=== PATIENT | male | born 1960 | race Caucasian/White ===

== ENCOUNTER 2017-02-08 20:58 | Emergency (ER) | payer OTHER ==
[~2017-02-08] VITALS: Ht 180.3 cm; Wt 90.7 kg
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
--- NOTE | 2017-02-08 22:28 | NUR ---
PT TO RADIOLOGY FOR HEAD AND FACIAL CT SCAN VIA WHEELCHAIR.
--- NOTE | 2017-02-08 23:35 | NUR ---
Patient discharged to home in stable condition. Written and verbal after care instructions given. Patient verbalizes understanding of instruction.
[2017-02-08 23:36] VITALS: BP 142/96
== END 2017-02-08 23:36 | disposition home or self-care (01) ==
LOC: ER 21:00
DX: S02.32XA Fracture of orbital floor, left side, initial encounter for closed fracture (principal); I10 Essential (primary) hypertension; I73.9 Peripheral vascular disease, unspecified; F41.9 Anxiety disorder, unspecified; F32.9 Major depressive disorder, single episode, unspecified; F17.200 Nicotine dependence, unspecified, uncomplicated; Y04.0XXA Assault by unarmed brawl or fight, initial encounter; Y92.89 Other specified places as the place of occurrence of the external cause; Y93.89 Activity, other specified; Y99.8 Other external cause status
CPT/HCPCS: 70450-TC; 70486-TC; A4606; Z7610

== ENCOUNTER 2018-03-25 00:12 | Emergency (ER) | payer OTHER ==
[~2018-03-25] VITALS: Ht 180.3 cm; Wt 99.8 kg
[2018-03-25] MEDS ORDERED: IV D5/ 0.9% NACL 1,000 ML IV ONE (01:24)
[2018-03-25] MEDS ORDERED: LORAZEPAM INJ 2 MG/ML VIAL IV ONE (01:30)
[2018-03-25] MEDS ORDERED: ASPIRIN 81 MG TAB.CHEW PO ONE (01:30)
[2018-03-25] MEDS ORDERED: ASPIRIN 81 MG TAB.CHEW ONE (01:33)
[2018-03-25] MEDS ORDERED: LORAZEPAM INJ 2 MG/ML VIAL ONE (01:34)
--- NOTE | 2018-03-25 01:42 | NUR ---
BLOOD SENT TO LAB
[2018-03-25 01:49] LABS: BASOPHILS % (AUTO) 0.1 % (0.0-2.0); EOSINOPHILS % (AUTO) 8.8 % (0.0-6.0); HEMATOCRIT 46 % (39-51); HEMOGLOBIN 15.6 g/dL (13.5-17.5); LYMPHOCYTES % (AUTO) 37.4 % (20.0-44.0); MEAN CORPUSCULAR HGB CONC 34 g/dl (31.0-36.0); MEAN CORPUSCULAR VOLUME 98 fL (80-96); MONOCYTES # (AUTO) 0.5 /CMM (0.1-1.30); MONOCYTES % (AUTO) 10.5 % (2.0-12.0); NEUTROPHILS # (AUTO) 2.3 /CMM (1.8-8.9); NEUTROPHILS % (AUTO) 43.2 % (43.0-81.0); PLATELET COUNT (AUTO) 186 /CMM (150-450); RED BLOOD CELL COUNT(AUTO) 4.66 MIL/uL (4.5-6.0); WHITE BLOOD COUNT (AUTO) 5.2 K/uL (4.3-11.0)
--- NOTE | 2018-03-25 01:50 | NUR ---
Presented with generalyzed body ache,not feeling well,admits to drinking .Awake,alert,not in any distress,denies any chest pain.
[2018-03-25 02:05] LABS: D-DIMER 0.57 mg/L(FEU (0.17-0.50)
[2018-03-25 02:06] LABS: CALCIUM, SERUM 8.9 mg/dL (8.5-10.1); CARBON DIOXIDE 32 mmol/L (21-32); CHLORIDE 102 mmol/L (98-107); CREATININE 1.1 mg/dL (0.6-1.3); GLUCOSE 110 mg/dL (74-106); POTASSIUM 3.2 mmol/L (3.5-5.1); SODIUM SERUM 144 mmol/L (136-145); UREA NITROGEN, BLOOD 11 mg/dL (7-18)
[2018-03-25 02:14] LABS: ALANINE AMINOTRANSFERASE 116 U/L (12-78); ALBUMIN 3.9 g/dL (3.4-5.0); ALKALINE PHOSPHATASE 57 U/L (46-116); ASPARTATE AMINOTRANSFERASE 104 U/L (15-37); B-TYPE NATRIURETIC PEPTIDE 17 PG/ML (0-125); BILIRUBIN,DIRECT 0.1 mg/dL (0.0-0.2); BILIRUBIN,TOTAL 0.3 mg/dL (0.2-1.0); TOTAL PROTEIN, SERUM 8.1 g/dL (6.4-8.2)
[2018-03-25] MEDS ORDERED: POTASSIUM CHLORIDE 20 MEQ TAB.PRT.SR PO ONE ×2 (03:00→03:09)
--- NOTE | 2018-03-25 03:38 | NUR ---
PATIENT SIGNED DISCHARGE PAPERS. WAITING FOR IV FLUID BAG TO FINISH INFUSING. ONCE IVF IS DONE Pt IS CLEARED TO LEAVE.
--- NOTE | 2018-03-25 03:38 | NUR ---
ALL ORDERED MEDS GIVEN
[2018-03-25 04:25] VITALS: BP 150/98
--- NOTE | 2018-03-25 04:25 | NUR ---
Patient discharged to home in stable condition. Written and verbal after care instructions given. Patient verbalizes understanding of instruction. IV access removed and secured with gauze and tape. No signs of bleeding noted. All ordered meds given. Pt left facility on foot, with slow steady gait. No s/s of acute distress or sob noted.
== END 2018-03-25 04:25 | disposition home or self-care (01) ==
LOC: ER 00:15
DX: F10.229 Alcohol dependence with intoxication, unspecified (principal); E87.6 Hypokalemia; R53.1 Weakness; E86.0 Dehydration; R56.9 Unspecified convulsions; I10 Essential (primary) hypertension; F31.9 Bipolar disorder, unspecified; F17.210 Nicotine dependence, cigarettes, uncomplicated; Y90.8 Blood alcohol level of 240 mg/100 ml or more; Z60.2 Problems related to living alone; Z71.6 Tobacco abuse counseling; Z59.0 Homelessness
CPT/HCPCS: 36415; 71045-TC; 80048-TC; 80076-TC; 83880; 84484-TC; 85025-TC; 85378-TC; 85730-TC; A4606; G0480; J2060; J7042; Z7610

== ENCOUNTER 2019-02-12 17:12 | Emergency (ER) | payer MEDICAID, OTHER ==
[~2019-02-12] VITALS: Ht 180.3 cm; Wt 89.8 kg
[2019-02-12 17:18] VITALS: BP 124/64
--- NOTE | 2019-02-12 17:25 | NUR ---
DR SEPULVEDA AT BEDSIDE FOR EVAL.
--- NOTE | 2019-02-12 17:45 | NUR ---
RADIOLOGY AT BEDSIDE FOR R SHOULDER XRAY.
--- NOTE | 2019-02-12 18:39 | NUR ---
PT PROVIDED W/ SHOULDER SLING, DISCHARGE IN STABLE CONDITION.
== END 2019-02-12 18:40 | disposition home or self-care (01) ==
LOC: ER 17:23
DX: M25.511 Pain in right shoulder (principal); M54.2 Cervicalgia; R56.9 Unspecified convulsions; I10 Essential (primary) hypertension; F41.9 Anxiety disorder, unspecified; F31.9 Bipolar disorder, unspecified; F10.10 Alcohol abuse, uncomplicated; F17.200 Nicotine dependence, unspecified, uncomplicated; Y90.9 Presence of alcohol in blood, level not specified; Z59.0 Homelessness
CPT/HCPCS: 72040-TC; 73030-TC

== ENCOUNTER 2019-02-16 12:17 | Inpatient (IN) | payer MEDICAID ==
[~2019-02-16] VITALS: Ht 175.3 cm; Wt 86.2 kg
--- NOTE | 2019-02-16 12:40 | NUR ---
PATIENT CAME TO ER WITH C/O WEAKNESS 5x DAYS. NAD NOTED. NO SOB. PATIENT CONNECTED TO MONITOR. WILL CONTINUE TO MONITOR FOR PATIENT SAFETY.
--- NOTE | 2019-02-16 12:56 | NUR ---
BLOOD SUGAR 105.
[2019-02-16] MEDS ORDERED: IV NS 0.9% 1,000 ML BAG IV ONE (13:00)
[2019-02-16 13:51] LABS: BASOPHILS # (AUTO) 0.1 /CMM (0.0-0.2); BASOPHILS % (AUTO) 1.1 % (0.0-2.0); EOSINOPHILS % (AUTO) 4.8 % (0.0-6.0); HEMATOCRIT 44 % (39-51); LYMPHOCYTES # (AUTO) 1.2 /CMM (0.8-4.8); LYMPHOCYTES % (AUTO) 16.1 % (20.0-44.0); MEAN CORPUSCULAR HGB CONC 34 g/dl (31.0-36.0); MEAN CORPUSCULAR VOLUME 103 fL (80-96); MONOCYTES # (AUTO) 0.8 /CMM (0.1-1.30); MONOCYTES % (AUTO) 10.5 % (2.0-12.0); NEUTROPHILS # (AUTO) 5.2 /CMM (1.8-8.9); NEUTROPHILS % (AUTO) 67.5 % (43.0-81.0); PLATELET COUNT (AUTO) 250 /CMM (150-450); RED BLOOD CELL COUNT(AUTO) 4.31 MIL/uL (4.5-6.0); WHITE BLOOD COUNT (AUTO) 7.7 K/uL (4.3-11.0)
[2019-02-16 14:01] LABS: CALCIUM, SERUM 9.4 mg/dL (8.5-10.1); CARBON DIOXIDE 27 mmol/L (21-32); CHLORIDE 101 mmol/L (98-107); GLUCOSE 86 mg/dL (74-106); SODIUM SERUM 138 mmol/L (136-145); UREA NITROGEN, BLOOD 11 mg/dL (7-18)
--- NOTE | 2019-02-16 14:09 | NUR ---
ART INSTALLER AT BEDSIDE
[2019-02-16 14:28] LABS: ALANINE AMINOTRANSFERASE 30 U/L (12-78); ALBUMIN 3.6 g/dL (3.4-5.0); ALKALINE PHOSPHATASE 62 U/L (46-116); ASPARTATE AMINOTRANSFERASE 23 U/L (15-37); BILIRUBIN,DIRECT 0.1 mg/dL (0.0-0.2); BILIRUBIN,TOTAL 0.3 mg/dL (0.2-1.0); TOTAL PROTEIN, SERUM 7.4 g/dL (6.4-8.2)
[2019-02-16] MEDS ORDERED: QUET400T PO (14:35)
--- NOTE | 2019-02-16 14:49 | NUR ---
EPIC CALLED DR PAUL PAGED
[2019-02-16] MEDS ORDERED: ACETAMINOPHEN 325 MG TABLET PO PRN (15:30)
[2019-02-16] MEDS ORDERED: ONDANSETRON HCL/PF 4 MG/2 ML VIAL IVP PRN (15:30)
[2019-02-16] MEDS ORDERED: MAGNESIUM HYDROXIDE 30 ML UDC PO PRN (15:30)
[2019-02-16] MEDS ORDERED: Z GUARD REMEDY 2 OZ OINT TP PRN (15:30)
--- NOTE | 2019-02-16 16:09 | NUR ---
TEXTED DR. BRAVO FOR MRI APPROVAL.
--- NOTE | 2019-02-16 16:30 | NUR ---
REPORT GIVEN TO MS 304
[2019-02-16 17:00] VITALS: BP 156/92
[2019-02-16] MEDS: HYDROCODONE/APAP 5/325MG 1 EACH TABLET PO PRN (17:10)
--- NOTE | 2019-02-16 17:50 | NUR ---
MS MARKETING FORECASTER NOTES RECEIVED PT FROM ER DEPT TRANSPORTED VIA STRETCHER. PT ARRIVED AT THE UNIT AT 1650. PT AMBULATORY, A/O X4. TOLERATING RA, WITH NO ACUTE RESPIRATORY DISTRESS NOTED. PT ABLE TO GIVE OWN HISTORY. PT STATED PAIN IN HIS RIGHT ARM AND NUMBNESS. PT DENIES ANY CHEST PAIN. PT ADDED HE WAS ALWAYS IN PAIN AND DO NOT TAKE ANY MEDICINES AT HOME. PT LIVES ON A TENT, HE CLARIFIED. PIV TO RAC G20, FLUSHED WITH NS, INTACT AND OPERATIONAL. ADMITTING MD/GA AWARE OF ADMISSION AND PLACED ORDERS. PT HAD X1 EMESIS WHILE RN GATHERING HISTORY FROM PT. PT DENIES ANY NAUSEA AFTER, AND PT STATED HE GETS BETTER WHEN HE THROWS UP. PT REFUSES ANTI NAUSEA MEDICINE AT THIS TIME. PT KEPT COMFORTABLE. CALL LIGHT KEPT WITHIN REACH. PT'S BED IN LOWEST, LOCKED POSITION WITH SRX2. VS RECORDED. WILL CONTINUE PLAN OF CARE.
--- NOTE | 2019-02-16 18:05 | NUR ---
MS RN NOTES PT WAS DIRECTOR WOMEN BY FINANCIAL ANALYSIS ADVISOR FOR MRI THAT WAS ORDERED FROM ER.
--- NOTE | 2019-02-16 18:53 | NUR ---
MS RN NOTES WATER TREATMENT SPECIALIST CALLED AND STATED PT DOESN'T WANT TO CONTINUE THE PROCEDURE. THEY ARE DONE WITH NECK. THEY WILL DO SHOULDER TOMORROW. /CONNER IN THE UNIT AND MADE AWARE. OKAY WITH IT LONG NECK IS DONE. WILL ENDORSE TO INCOMING NIGHT NURSE WELL.
--- NOTE | 2019-02-16 19:03 | NUR ---
MS RN CLOSING NOTES PT JUST GOT BACK FROM MRI VIA WHEELCHAIR. PT AMBULATORY, A/O X4. TOLERATING RA, WITH NO ACUTE RESPIRATORY DISTRESS NOTED. PT DENIES ANY PAIN OR DISCOMFORT AT THIS MOMENT. PIV TO RAC G20, FLUSHED WITH NS, INTACT AND OPERATIONAL. ALL NEEDS AND CARE ATTENDED. PT KEPT COMFORTABLE. CALL LIGHT KEPT WITHIN REACH. PT'S BED IN LOWEST, LOCKED POSITION WITH SRX2. WILL ENDORSE TO INCOMING NIGHT NURSE FOR RAYSHAWN.
--- NOTE | 2019-02-16 19:10 | NUR ---
MS RN NOTES RECEIVED PT IN BED AWAKE AND ABLE TO MAKE NEEDS KNOWN. PT AXO RESPIRATIONS EVEN AND UNLABORED WITH NO S/S OF ACUTE DISTRESS OR SOB NOTED. PT PT AMBULATORY, A/O X4. TOLERATING RA, WITH NO ACUTE RESPIRATORY DISTRESS NOTED. PT DENIES ANY PAIN OR DISCOMFORT AT THIS MOMENT. PIV TO RAC G20, FLUSHED WITH NS, INTACT AND OPERATIONAL. ALL NEEDS AND CARE ATTENDED. PT KEPT COMFORTABLE. CALL LIGHT KEPT WITHIN REACH. PT'S BED IN LOWEST, LOCKED POSITION WITH SRX2. WILL ENDORSE TO INCOMING NIGHT NURSE FOR RAYSHAWN. Addendum: 02/16/19 at 2037 by ELLEN BARNEY RN MS RN NOTES RECEIVED PT IN BED AWAKE AND ABLE TO MAKE NEEDS KNOWN WITH AT BEDSIDE. PT AXO X4. RESPIRATIONS EVEN AND UNLABORED WITH NO S/S OF ACUTE DISTRESS OR SOB NOTED. NO COMPLAINTS OF PAIN AT THIS TIME. PT WITH IV @ RAC G20 PATENT AND INTACT. SAFETY MEASURES IN PLACE WITH BED IN LOWEST LOCKED POSITION WITH SIDE RAILS PX2. CALL LIGHT WITHIN REACH. WILL CONTINUE TO MONITOR.
[2019-02-16 20:12] VITALS: BP 159/97
[2019-02-16] MEDS: MAG HYDROX/AL HYDROX/SIMETH 30 ML UDC PO PRN (20:54)
[2019-02-16] MEDS: QUETIAPINE FUMARATE 100 MG TABLET PO SCH (22:10)
[2019-02-17 00:26] VITALS: BP 139/78
[2019-02-17] MEDS: ZOLPIDEM TARTRATE 5 MG TABLET PO PRN ×2 (00:39→22:50)
[2019-02-17 01:09] VITALS: BP 139/78
--- NOTE | 2019-02-17 07:30 | NUR ---
MS RN NOTES PT IN BED AWAKE AND ABLE TO MAKE NEEDS KNOWN. PT A/O X3. RESPIRATIONS EVEN AND UNLABORED WITH NO S/S OF ACUTE DISTRESS OR SOB NOTED THROUGHOUT SHIFT. PT DENIES ANY PAIN OR DISCOMFORT AT THIS TIME. IV TO RAC G20, PATENT AND INTACT AND SL. PT'S BED IN LOWEST LOCKED POSITION WITH SIDE RAILS UP X2. CALL LIGHT WITHIN REACH. WILL ENDORSE TO ONCOMING NURSE FOR RAYSHAWN.
[2019-02-17 07:37] LABS: BASOPHILS % (AUTO) 0.3 % (0.0-2.0); HEMATOCRIT 45 % (39-51); LYMPHOCYTES # (AUTO) 1.3 /CMM (0.8-4.8); LYMPHOCYTES % (AUTO) 19.8 % (20.0-44.0); MEAN CORPUSCULAR HGB CONC 34 g/dl (31.0-36.0); MEAN CORPUSCULAR VOLUME 103 fL (80-96); MONOCYTES # (AUTO) 0.7 /CMM (0.1-1.30); MONOCYTES % (AUTO) 11.1 % (2.0-12.0); NEUTROPHILS # (AUTO) 3.7 /CMM (1.8-8.9); NEUTROPHILS % (AUTO) 55.8 % (43.0-81.0); PLATELET COUNT (AUTO) 220 /CMM (150-450); RED BLOOD CELL COUNT(AUTO) 4.34 MIL/uL (4.5-6.0); WHITE BLOOD COUNT (AUTO) 6.7 K/uL (4.3-11.0)
[2019-02-17 08:00] VITALS: BP 158/90
[2019-02-17 08:03] LABS: CALCIUM, SERUM 8.8 mg/dL (8.5-10.1); CREATININE 0.9 mg/dL (0.6-1.3); PHOSPHORUS 4.1 mg/dL (2.5-4.9); POTASSIUM 4.1 mmol/L (3.5-5.1)
[2019-02-17 09:00] LABS: THYROID STIMULATING HORMONE 3.555 uIU/mL (0.358-3.74)
[2019-02-17] MEDS: HYDROCODONE/APAP 5/325MG 1 EACH TABLET PO PRN ×3 (10:22→19:44)
--- NOTE | 2019-02-17 11:04 | NUR ---
Social service consult requested by Dr. Long for homelessness. Pt. is a 58 year old male who came to [facility] for Right arm weakness. SW met with pt. bedside. Pt. is alert and oriented x 4. Pt. appears disheveled. Pt. is cooperative and pleasant with SW. Pt. states he is homeless and lives in a tent in [place]. Pt. is linked with [facility] for case management and housing. Pt. stated he use to have [address] apartment in [place] a few years ago but rent increased and he couldn't afford it anymore. He has been homeless since then. Pt. receives approximately $1000/ month in SSI. SW offered pt. usp placement, however pt. declined stating, " I am thinking of taking my tent and moving either to the beach or the mountains." Pt. has a daughter that resides in [place]. Pt. has a psychiatric diagnosis of Depression, Bipolar and Anxiety. Pt. is not taking any medications at this time, however is linked with [facility] mental health clinic. Pt. states his mother a few days ago and has been feeling sad. SW offered emotional support to the pt. Pt. denies suicidal and homicidal ideations and visual/auditory hallucinations at this time. Pt. drinks six pack of beer daily and marijuana when available. Pt. denies any other drug use. Pt. declined usp placement but would like a TAP card upon discharge. SW to offer pt. homeless usp and homeless resources upon discharge.
[2019-02-17] MEDS: NICOTINE PATCH (14MG) 14 MG PATCH.TD24 TD SCH (14:39)
[2019-02-17 16:00] VITALS: BP 169/109
[2019-02-17 20:00] VITALS: BP 165/108
--- NOTE | 2019-02-17 20:21 | NUR ---
RECIEVED ALERT AND ORIENTATED. TALKATIVE ABOUT HIS RIGHT ARM AND WHAT HAPPEN AND HIS PASS MEDICAL INJURIES. PLEASENT AND SMILINH. NOTED RIGHT ARM HE IS ABLE TO LIFT OFF THE BED AND ELEVATE JUST TO ABD HEIGHT. FINGER MOVEABLE HAND AND ARM WARM MODERATE HAND STRENGTH. ELEVATED THE ARM ON A PILLOW. NORCO TAB 1 GIVEN FOR PAIN C/O 9, ALSO HE REQUISTED A SNACK AND SERVED LARGE SNACK CONSUMING 100%. VOID IN THE URINAL BED ALARM ON, REVIEWED THE CALL LIGHT WITH HIM.
[2019-02-17 20:28] VITALS: BP 165/108
[2019-02-17] MEDS: QUETIAPINE FUMARATE 100 MG TABLET PO SCH (21:40)
[2019-02-17] MEDS: MAG HYDROX/AL HYDROX/SIMETH 30 ML UDC PO PRN (22:11)
--- NOTE | 2019-02-18 06:01 | NUR ---
SLEPT THRU THE NIGHT. SEAQUIL ROUTINE GIVEN AND THE AMBIEN. HE HAS A GOOD APPETIE, LARGE SNACK TAKEN PRIOR SLEEP. NOT WEAKNESS RIGHT ARM AND 4/5 RIGHT HAND SQUEESE STRENGTH. COOPERATIVE MEDICATED X1 WITH NORCO FOR RIGHT ARM PAIN AND EFFECTIVE.
[2019-02-18 07:29] LABS: BASOPHILS # (AUTO) 0.1 /CMM (0.0-0.2); BASOPHILS % (AUTO) 1.2 % (0.0-2.0); EOSINOPHILS % (AUTO) 12.6 % (0.0-6.0); HEMATOCRIT 45 % (39-51); HEMOGLOBIN 15.3 g/dL (13.5-17.5); LYMPHOCYTES # (AUTO) 1.4 /CMM (0.8-4.8); LYMPHOCYTES % (AUTO) 19.6 % (20.0-44.0); MEAN CORPUSCULAR HGB CONC 34 g/dl (31.0-36.0); MEAN CORPUSCULAR VOLUME 103 fL (80-96); MONOCYTES # (AUTO) 0.8 /CMM (0.1-1.30); MONOCYTES % (AUTO) 10.8 % (2.0-12.0); NEUTROPHILS % (AUTO) 55.8 % (43.0-81.0); PLATELET COUNT (AUTO) 241 /CMM (150-450); RED BLOOD CELL COUNT(AUTO) 4.42 MIL/uL (4.5-6.0); WHITE BLOOD COUNT (AUTO) 7.1 K/uL (4.3-11.0)
[2019-02-18 07:38] LABS: CALCIUM, SERUM 8.7 mg/dL (8.5-10.1); CREATININE 0.9 mg/dL (0.6-1.3); POTASSIUM 3.9 mmol/L (3.5-5.1)
[2019-02-18 08:00] VITALS: BP_SYST 140; BP_SYST 148; BP_DIAS 102; BP_DIAS 92
--- NOTE | 2019-02-18 08:00 | NUR ---
MS RN NOTES PT IN BED AWAKE AND ABLE TO MAKE NEEDS KNOWN. PT A/O X3. RESPIRATIONS EVEN AND UNLABORED WITH NO S/S OF ACUTE DISTRESS OR SOB NOTED. PT C/O RT ARM PAIN.NORCO GIVEN PRN FOR PAIN MGT. IV TO RAC G20, PATENT AND INTACT AND SL. PT'S BED IN LOWEST LOCKED POSITION WITH SIDE RAILS UP X2. CALL LIGHT WITHIN REACH.
[2019-02-18] MEDS: NICOTINE PATCH (14MG) 14 MG PATCH.TD24 TD SCH (08:49)
[2019-02-18] MEDS: HYDROCODONE/APAP 5/325MG 1 EACH TABLET PO PRN (08:50)
--- NOTE | 2019-02-18 11:00 | NUR ---
DR ALEJANDRE CAME TO SEE PT. CALLED DR ALLEN (NEURO SURGEON)TO FOLLOW UP ABOUT PT'S NEURO CONSULT AND DR ALLEN WANTED TO TALK TO THE HOSPITALIST (DR PAUL) INSTEAD SAYING IT SHOULD BE BETWEEN DOCTOR TO DOCTOR AND QUESTIONED WHY WE NURSES CALLED HIM.
[2019-02-18 16:18] VITALS: BP 153/102
[2019-02-18] MEDS: HYDROCODONE/APAP 10/325MG 1 EA TABLET PO PRN ×2 (16:26→20:06)
--- NOTE | 2019-02-18 18:58 | NUR ---
RESTING IN BED WATCHING TV DENYING ANY PAIN OR DISTRESS.PAIN MGT EFFECTIVE TO RT ARM.TOOK A SHOWER AND ORAL HYGIENE DONE.CALL LIGHT PLACED WITHIN REACH.
--- NOTE | 2019-02-18 19:00 | NUR ---
RECIEVED ALERT AND ORIENTED. MEDICATED RIGHT AWAY FOR PAIN RIGHT ARM. HE WAS REMINDED TO USE THE MEGAN LIGHT WHEN NEED TO GET OOB
[2019-02-18 20:00] VITALS: BP 147/95
[2019-02-18 20:40] VITALS: BP 147/95
[2019-02-18] MEDS: QUETIAPINE FUMARATE 100 MG TABLET PO SCH (21:20)
[2019-02-18] MEDS: ZOLPIDEM TARTRATE 5 MG TABLET PO PRN ×2 (22:17→23:23)
[2019-02-19] MEDS: HYDROCODONE/APAP 10/325MG 1 EA TABLET PO PRN ×4 (00:05→22:02)
[2019-02-19] MEDS: MAG HYDROX/AL HYDROX/SIMETH 30 ML UDC PO PRN (00:06)
--- NOTE | 2019-02-19 05:16 | NUR ---
ending notes: PLEASENT AND COOPERATIVE THRU THE NIGHT. MEDICATED X2 FOR RIGHT ARM/SHOULD PAIN, COMMENT THE INCREASE IN THE NORCO DOSE KEEPS THE PAIN AT A 4 AND THIS IS TOLERABLE. HIS RIGHT ARM HURTS FOR HIM TO MOVE UP. HAND ONLINE CONTENT DEVELOPER IS 4/5 STRENGTH,
[2019-02-19 07:05] LABS: BASOPHILS # (AUTO) 0.1 /CMM (0.0-0.2); BASOPHILS % (AUTO) 1.2 % (0.0-2.0); EOSINOPHILS % (AUTO) 15.6 % (0.0-6.0); HEMATOCRIT 43 % (39-51); HEMOGLOBIN 14.5 g/dL (13.5-17.5); LYMPHOCYTES # (AUTO) 1.6 /CMM (0.8-4.8); LYMPHOCYTES % (AUTO) 24.6 % (20.0-44.0); MEAN CORPUSCULAR HGB CONC 33 g/dl (31.0-36.0); MEAN CORPUSCULAR VOLUME 104 fL (80-96); MONOCYTES # (AUTO) 0.9 /CMM (0.1-1.30); MONOCYTES % (AUTO) 13.2 % (2.0-12.0); NEUTROPHILS % (AUTO) 45.4 % (43.0-81.0); PLATELET COUNT (AUTO) 235 /CMM (150-450); RED BLOOD CELL COUNT(AUTO) 4.19 MIL/uL (4.5-6.0); WHITE BLOOD COUNT (AUTO) 6.5 K/uL (4.3-11.0)
[2019-02-19 07:23] LABS: CALCIUM, SERUM 8.7 mg/dL (8.5-10.1)
--- NOTE | 2019-02-19 07:57 | NUR ---
MS RN OPENING NOTES Received Patient asleep and resting in bed. A/O x 4. VS stable with no acute distress. Breathing even and unlabored on room air with no respiratory distress. No signs and symptoms of pain at this time. 20g RAC clean, dry, intact and flushing well. Safety precautions in place. Bed locked and set to lowest position with side rails x 2 up. All needs rendered at this time. Call light within reach. Will continue to monitor.
[2019-02-19 08:00] VITALS: BP 137/90
[2019-02-19] MEDS: NICOTINE PATCH (14MG) 14 MG PATCH.TD24 TD SCH (08:30)
--- NOTE | 2019-02-19 09:26 | NUR ---
MS RN NOTES Obtained consent for "fine needle aspiration with ultrasound guidance" from Patient at this time. Placed signed consent in chart. Will continue to monitor.
[2019-02-19 16:00] VITALS: BP 156/102
--- NOTE | 2019-02-19 19:10 | NUR ---
MS RN CLOSING NOTES Patient awake and resting in bed. A/O x 4. VS stable with no acute distress. Breathing even and unlabored on room air with no respiratory distress. Patient states tolerable pain level at this time. 20g RAC clean, dry, intact and flushing well. Safety precautions in place. Bed locked and set to lowest position with side rails x 2 up. All needs rendered at this time. Call light within reach. Will endorse plan of care to oncoming shift.
--- NOTE | 2019-02-19 19:49 | NUR ---
MS/RN RECEIVE PATIENT IN ROOM AWAKE, ALERT, ORIENTED, COMFORTABLE, NO C/O PAIN AT THIS TIME, NO DISTRESS, NOTED, CALL LIGHT IN REACH, WILL MONITOR.
[2019-02-19 20:00] VITALS: BP 146/94
[2019-02-19] MEDS: QUETIAPINE FUMARATE 100 MG TABLET PO SCH (21:56)
--- NOTE | 2019-02-19 23:04 | NUR ---
MS/RN PATIENT IS SLEEPING AT THIS TIME, APPEAR COMFORTABLE, NO SIGNS OF DISTRESS NOTED, CALL LIGHT IN REACH. WILL CONTINUE TO MONITOR.
[2019-02-20] MEDS: MAG HYDROX/AL HYDROX/SIMETH 30 ML UDC PO PRN (01:06)
[2019-02-20] MEDS: ZOLPIDEM TARTRATE 5 MG TABLET PO PRN ×2 (01:10→23:16)
[2019-02-20 05:40] LABS: BASOPHILS # (AUTO) 0.1 /CMM (0.0-0.2); BASOPHILS % (AUTO) 0.8 % (0.0-2.0); EOSINOPHILS % (AUTO) 13.9 % (0.0-6.0); HEMATOCRIT 43 % (39-51); HEMOGLOBIN 14.7 g/dL (13.5-17.5); LYMPHOCYTES # (AUTO) 1.7 /CMM (0.8-4.8); LYMPHOCYTES % (AUTO) 23.2 % (20.0-44.0); MEAN CORPUSCULAR HGB CONC 34 g/dl (31.0-36.0); MEAN CORPUSCULAR VOLUME 102 fL (80-96); MONOCYTES % (AUTO) 13.1 % (2.0-12.0); NEUTROPHILS # (AUTO) 3.6 /CMM (1.8-8.9); PLATELET COUNT (AUTO) 228 /CMM (150-450); RED BLOOD CELL COUNT(AUTO) 4.23 MIL/uL (4.5-6.0); WHITE BLOOD COUNT (AUTO) 7.3 K/uL (4.3-11.0)
--- NOTE | 2019-02-20 06:18 | NUR ---
MS/RN PATIENT IS STILL SLEEPING, APPEAR COMFORTABLE, NO SIGNS OF DISTRESS NOTED, CALL LIGHT IN REACH, ALL NEEDS ATTENDED AT THIS TIME, WILL CONTINUE TO MONITOR.
[2019-02-20] MEDS: HYDROCODONE/APAP 10/325MG 1 EA TABLET PO PRN ×5 (06:36→21:59)
[2019-02-20 06:44] LABS: CALCIUM, SERUM 8.6 mg/dL (8.5-10.1); POTASSIUM 4.2 mmol/L (3.5-5.1)
[2019-02-20 08:00] VITALS: BP_SYST 109; BP_SYST 130; BP_DIAS 64; BP_DIAS 80
--- NOTE | 2019-02-20 08:15 | NUR ---
per : D/C [place]-10 Q6hr. A new order: [place]-10 Q4hr.
[2019-02-20] MEDS: NICOTINE PATCH (14MG) 14 MG PATCH.TD24 TD SCH (09:16)
[2019-02-20] MEDS: GABAPENTIN 300 MG CAPSULE PO SCH ×2 (13:11→17:26)
[2019-02-20 16:00] VITALS: BP 148/95
--- NOTE | 2019-02-20 18:51 | NUR ---
Patient awake A/O x 4. No acute distress. Breathing even and unlabored on room air with no respiratory distress. IV line 20g RAC intact and flushing well. Safety precautions in place. Bed locked and set to lowest position with side rails x 2 up. All needs attended . Call light within reach. Will endorse plan of care to next shift.
[2019-02-20 20:00] VITALS: BP 149/93
[2019-02-20] MEDS: QUETIAPINE FUMARATE 100 MG TABLET PO SCH (21:20)
--- NOTE | 2019-02-20 21:29 | NUR ---
MS/RN PER PATIENT HE HAS NO BOWEL MOVEMENT FOR DAYS, MOM WAS GIVEN ORDERED.
--- NOTE | 2019-02-20 23:09 | NUR ---
MS/RN PATIENT IS SLEEPING AT THIS TIME, APPEAR COMFORTABLE, NO SIGNS OF DISTRESS NOTED, CALL LIGHT IN REACH. WILL CONTINUE TO MONITOR.
--- NOTE | 2019-02-21 06:06 | NUR ---
MS/RN PATIENT IS STILL SLEEPING, APPEAR COMFORTABLE, NO SIGNS OF DISTRESS NOTED, CALL LIGHT IN REACH. ALL NEEDS ATTENDED AT THIS TIME, WILL CONTINUE TO MONITOR.
[2019-02-21 07:09] LABS: CALCIUM, SERUM 8.5 mg/dL (8.5-10.1); POTASSIUM 4.1 mmol/L (3.5-5.1)
[2019-02-21 07:33] LABS: BASOPHILS # (AUTO) 0.2 /CMM (0.0-0.2); BASOPHILS % (AUTO) 2.9 % (0.0-2.0); EOSINOPHILS % (AUTO) 15.9 % (0.0-6.0); HEMATOCRIT 45 % (39-51); HEMOGLOBIN 15.3 g/dL (13.5-17.5); LYMPHOCYTES # (AUTO) 1.4 /CMM (0.8-4.8); LYMPHOCYTES % (AUTO) 20.6 % (20.0-44.0); MEAN CORPUSCULAR HGB CONC 34 g/dl (31.0-36.0); MEAN CORPUSCULAR VOLUME 103 fL (80-96); MONOCYTES # (AUTO) 0.9 /CMM (0.1-1.30); MONOCYTES % (AUTO) 13.9 % (2.0-12.0); NEUTROPHILS # (AUTO) 3.1 /CMM (1.8-8.9); NEUTROPHILS % (AUTO) 46.7 % (43.0-81.0); PLATELET COUNT (AUTO) 213 /CMM (150-450); RED BLOOD CELL COUNT(AUTO) 4.39 MIL/uL (4.5-6.0); WHITE BLOOD COUNT (AUTO) 6.7 K/uL (4.3-11.0)
[2019-02-21 08:00] VITALS: BP 126/81
[2019-02-21] MEDS: GABAPENTIN 300 MG CAPSULE PO SCH ×3 (08:14→17:15)
[2019-02-21] MEDS: NICOTINE PATCH (14MG) 14 MG PATCH.TD24 TD SCH (08:14)
[2019-02-21] MEDS: HYDROCODONE/APAP 10/325MG 1 EA TABLET PO PRN ×4 (08:15→21:23)
--- NOTE | 2019-02-21 08:16 | NUR ---
RN NOTES ADMINISTERED NARCO 10/325 MG PO PRN FOR RIGHT SHOULDER PAIN 01/24- PER PATIENT REQUEST V/S TAKEN BP-126/81,P-78, CONTINUED MONITORING. ALSO ADMINISTERED SCHEDULED MEDICATION, CALL LIGHT WITHIN TO REACH.
--- NOTE | 2019-02-21 12:50 | NUR ---
RN NOTES ADMINISTERED NARCO 10/325 MG PO PRN FOR RIGHT SHOULDER PAIN PER PATIENT REQUEST, V/S TAKEN BP-125/90, 92, CONTINUED MONITORING.
[2019-02-21 16:00] VITALS: BP 111/66
--- NOTE | 2019-02-21 17:16 | NUR ---
RN NOTES ADMINISTERED NARCO 10/325 MG PO PRN FOR RIGHT SHOULDER PAIN 01/02 PER PATIENT REQUEST, ALSO ADMINISTERED SCHEDULED MEDICATION. APPLIED ICE APPLICANT ON RIGHT SHOULDER.
--- NOTE | 2019-02-21 18:27 | NUR ---
RN NOTES MEDICATION WERE ADMINISTERED FOR PAIN EFFECTIVE, V/S STABLE, ADMINISTERED SCHEDULED MEDICATION. PATIENT AMBULATORY, SELF CARE, TOLERATED FOOD 100 %. NEEDS ATTENDED AND ANTICIPATED. ENDORSED ONCOMING NURSE FOLLOW PLAN OF CARE.
--- NOTE | 2019-02-21 19:40 | NUR ---
MS RN NOTE: PATIENT RESTING IN BED, NO ACUTE DISTRESS NOTED. BREATHING EVEN AND UNLABORED, NO SOB NOTE. IV TO RAC IN PLACE. BED LOCKED AND IN LOWEST POSITION, CALL LIGHT IN REACH. WILL CONTINUE TO MONITOR.
[2019-02-21 20:07] VITALS: BP 157/88
[2019-02-21] MEDS: QUETIAPINE FUMARATE 100 MG TABLET PO SCH (21:23)
--- NOTE | 2019-02-21 21:30 | NUR ---
MS RN NOTE: PATIENT BLOOD SUGAR LEVEL 132MG/DL, PATIENT REFUSES INSULIN SINCE HE DOES NOT TAKE INSULIN AT HOME AND THAT HE HAS A POOR APPETITE AND NOTE EATING MUCH. EXPLAINED RISK AND BENEFITS, BUT STILL REFUSED. NO S/S OF HYPER/HYPOGLYCEMIA NOTED. WILL CONTINUE TO MONITOR. Addendum: 02/21/19 at 2144 by NIRMAL ESCALANTE RN ERROR, WRONG PATIENT ENTRY
--- NOTE | 2019-02-21 21:45 | NUR ---
MS RN NOTE: PATIENT COMPLAINS OF PAIN TO BACK, RIGHT ARM 12/02, NORCO 10/325MG 1 TAB ORAL GIVEN PER MD ORDER. WILL CONTINUE TO MONITOR.
[2019-02-21] MEDS: ZOLPIDEM TARTRATE 5 MG TABLET PO PRN (22:15)
--- NOTE | 2019-02-21 22:15 | NUR ---
MS RN NOTE: PATIENT REQUEST FOR SLEEPING MEDICATION, AMBIEN 5MG 1 TAB ORAL GIVEN PER MD ORDER. WILL CONTINUE TO MONITOR.
[2019-02-22] MEDS: HYDROCODONE/APAP 10/325MG 1 EA TABLET PO PRN ×3 (07:00→16:10)
--- NOTE | 2019-02-22 07:10 | NUR ---
MS RN NOTE: PATIENT RESTING IN BED, NO ACUTE DISTRESS NOTED. BREATHING EVEN AND UNLABORED, NO SOB NOTE. IV TO RAC IN PLACE. PATIENT COMPLAINS OF PAIN TO RIGHT ARM, 7/10, NORCO 10/325MG 1 TAB ORAL GIVEN PER MD ORDER. BED LOCKED AND IN LOWEST POSITION, CALL LIGHT IN REACH. WILL ENDORSE TO DAY NURSE TO CONTINUE WITH PLAN OF CARE.
[2019-02-22 08:00] VITALS: BP 125/73
--- NOTE | 2019-02-22 08:00 | NUR ---
RN NOTES RECEIVED PATIENT IN THE BED A/O X4, STABLE AFTER NIGHT PAIN MEDICATION GIVEN, ALSO ADMINISTERED SCHEDULED MEDICATION, PATIENT ABLE TO MOVE RIGHT FINGERS BUT UNABLE TO ELEVATED ARM . V/S STABLE, PATIENT AMBULATORY, USING BATHROOM. CALL LIGHT WITHIN TO REACH. PATIENT SEEN BY HOSPITALIST Dr PAUL. SAFETY PRECAUTION MAINTAINED AL THE TIME.
[2019-02-22] MEDS: GABAPENTIN 300 MG CAPSULE PO SCH ×3 (08:25→16:10)
[2019-02-22] MEDS: NICOTINE PATCH (14MG) 14 MG PATCH.TD24 TD SCH (08:25)
[2019-02-22 09:18] VITALS: BP 125/73
--- NOTE | 2019-02-22 09:53 | NUR ---
RN NOTES SEEN PATIENT BY NECROLOGIST Dr MATIAS, AND WALKING IN THE HALLWAY WITH PT. CONTINUED MONITORING.
--- NOTE | 2019-02-22 11:54 | NUR ---
RN NOTES ADMINISTERED NARCO 10/325 MG PO PRN FOR RIGHT SHULDER PAIN, V/S TAKEN BP-128/68, P-68, CONTINUED MONITORING.
[2019-02-22 11:56] LABS: BASOPHILS # (AUTO) 0.2 /CMM (0.0-0.2); BASOPHILS % (AUTO) 2.5 % (0.0-2.0); EOSINOPHILS % (AUTO) 12.9 % (0.0-6.0); HEMATOCRIT 45 % (39-51); HEMOGLOBIN 15.1 g/dL (13.5-17.5); LYMPHOCYTES # (AUTO) 1.3 /CMM (0.8-4.8); LYMPHOCYTES % (AUTO) 18.6 % (20.0-44.0); MEAN CORPUSCULAR HGB CONC 34 g/dl (31.0-36.0); MEAN CORPUSCULAR VOLUME 103 fL (80-96); MONOCYTES # (AUTO) 0.7 /CMM (0.1-1.30); NEUTROPHILS # (AUTO) 3.7 /CMM (1.8-8.9); PLATELET COUNT (AUTO) 205 /CMM (150-450); RED BLOOD CELL COUNT(AUTO) 4.36 MIL/uL (4.5-6.0); WHITE BLOOD COUNT (AUTO) 6.8 K/uL (4.3-11.0)
--- NOTE | 2019-02-22 12:00 | NUR ---
RN NOTES CASE MANAGEMENT TALK TO THE PATIENT ABOUT DISCHARGE PLANING BUT PATIENT REFUSED B&C . PER HOSPITALIST Dr. PAUL PATIENT WILL D/C HALF-WAY TOMORROW.
--- NOTE | 2019-02-22 12:24 | NUR ---
MECHELLE met with the pt. bedside to discuss discharge plan and offer chcf placement. Pt. is alert and oriented x 4. Pt. declined chcf placement stating he knows where to go. Pt. states the [facility] has been great and help him with meals and showers. Pt. states he is trying to save money so he can buy a car for $2000. Pt was hoping to go to a SNF, however per doctor/case management SNF is deemed not appropriate for SNF at this time. MECHELLE gave pt. the following homeless chcf and homeless resources: [facility] located at [address] ; [facility] [place], [address] [place] ; [employer] [facility] [place], [address] ; [facility] Homeless Resource Directory which includes food stamps, transitional housing, showers and hot meals etc; Mental Health clinics such as [facility] ; [facility] ; Health clinics;[facility] and Alcohol treatment centers such as [facility], ; [facility] Substance Abuse Hotline and [facility] . Homeless Patient Waiver form was placed in pt's chart for him to sign upon discharge. Pt. will require a TAP card upon discharge. YANET Shelton was updated with pt's discharge plan.
[2019-02-22 14:41] LABS: CALCIUM, SERUM 8.5 mg/dL (8.5-10.1); CREATININE 1.2 mg/dL (0.6-1.3)
--- NOTE | 2019-02-22 15:00 | NUR ---
RN NOTES PATIENT IN THE PAIN AT THIS TIME ON RIGHT SHOULDER 01/02, EMOTIONAL, CRYING, ADMINISTERED TYLENOL 650 MG PO PRN PRESCRIBED, CONTINUED MONITORING,
[2019-02-22 16:00] VITALS: BP 138/80
--- NOTE | 2019-02-22 16:10 | NUR ---
RN NOTES ADMINISTERED NARCO 10/325 MG PO PRN FOR RIGHT SHOULDER PAIN 01/02 PER PATIENT REQUEST. BP 138/80, P-84, R-20, CONTINUED MONITORING.
--- NOTE | 2019-02-22 18:30 | NUR ---
RN NOTES PATIENT IN THE BED EATING DINNER, MEDICATION WERE ADMINISTERED FOR PAIN EFFECTIVE, ALSO ADMINISTERED SCHEDULED MEDICATION. V/S STABLE. PATIENT AMBULATORY SELF CARE. ENDORSED ONCOMING NURSE FOLLOW PLAN OF CARE.
[2019-02-22 20:42] VITALS: BP 135/85
[2019-02-22] MEDS: QUETIAPINE FUMARATE 100 MG TABLET PO SCH (21:13)
--- NOTE | 2019-02-22 22:19 | NUR ---
MS/RN ON INITIAL ROUNDING AT 1930, PATIENT WAS IN BED AWAKE, ALERT, ORIENTED, COMFORTABLE, NO C/O PAIN, NO DISTRESS NOTED, CALL LIGHT IN REACH. WILL MONITOR.
[2019-02-22] MEDS: ZOLPIDEM TARTRATE 5 MG TABLET PO PRN (22:41)
--- NOTE | 2019-02-22 23:42 | NUR ---
MS/RN PATIENT IS SLEEPING AT THIS TIME, APPEAR COMFORTABLE, NO SUIG Addendum: 02/22/19 at 2345 by MARIO BISHOP RN PATIENT IS SLEEPING AT THIS TIME, APPEAR COMFORTABLE, NO SIGNS OF DISTRESS NOTED, CALL LIGHT IN REACH. WILL CONTINUE TO MONITOR.
--- NOTE | 2019-02-23 06:30 | NUR ---
MS/RN PATIENT IS STILL SLEEPING AT THIS TIME, APPEAR COMFORTABLE, NO SIGNS OF DISTRESS NOTED,CALL LIGHT IN REACH. ALL NEEDS ATTENDED AT THIS TIME, WILL CONTINUE TO MONITOR.
[2019-02-23] MEDS: HYDROCODONE/APAP 10/325MG 1 EA TABLET PO PRN ×2 (06:43→11:55)
--- NOTE | 2019-02-23 07:44 | NUR ---
M/S RN - Assessment Patient is awake in bed, A/O x 4, denies pain, no apparent distress, stable on room air. Skin is intact. Patient is ambulatory with steady gait but still c/o RUE weakness. No labs today. Patient updated on plan of care. Possible SNF placement. Fall precautions maintained. Will continue with current medical management.
[2019-02-23 08:00] VITALS: BP 116/70
[2019-02-23] MEDS: NICOTINE PATCH (14MG) 14 MG PATCH.TD24 TD SCH (08:05)
[2019-02-23] MEDS: GABAPENTIN 300 MG CAPSULE PO SCH ×3 (08:05→16:05)
--- NOTE | 2019-02-23 15:30 | NUR ---
MS/RN - Notes Seen and examined by Dr. St, medically cleared for discharge home/detention today.
[2019-02-23] MEDS ORDERED: GABA300C PO (15:57)
[2019-02-23] MEDS ORDERED: Hydrocodone/Apap 10/325MG PO (15:57)
[2019-02-23 16:00] VITALS: BP 146/90
--- NOTE | 2019-02-23 16:35 | NUR ---
MS/RN - Discharge Patient is alert and oriented x 4, discharged to custodial in stable condition, remain afebrile, denies chest pain, not in any form of distress, ambulatory with steady gait, denies SI/HI, no visual or auditory hallucination at this time. Reviewed discharge instructions with patient and he verbalized full understanding of all teachings including medications and follow up with PCP within one week. Resources provided by social media editor. Follow up outpatient with PCP to monitor thyroid nodules, FNA u/s in 3-6 months per IR recommendations. Continue home medications. Written prescriptions for Ary 10/325mg PO Q4 hours PRN #18tabs and Gabapentin 300mg PO TID #30tabs given. Smoking cessation, ETOH cessation; do not take Ary with alcohol. Seek immediate medical attention for worsening symptoms, chest pain, shortness of breath, palpitations, abdominal pain or distention, intractable nausea and vomiting, diarrhea, hematochezia, melena, weakness, loss of consciousness, neurological deficit, or any other emergent concerns. All belongings with patient and he deny any missing items. Patient refused photos to be taken of skin, no breakdown. Patient signed discharge paperwork and homeless waiver form and copies were given per protocol. Accompanied to the lobby and TAP card was provided to the patient.
== END 2019-02-23 18:02 | disposition home or self-care (01) | DRG 347 ==
LOC: ER 12:19 → MED 16:08
PROVIDERS: ADMIT Family Medicine; ATTEND Hospitalist
DX: M48.02 Spinal stenosis, cervical region (principal); D75.89 Other specified diseases of blood and blood-forming organs; E04.1 Nontoxic single thyroid nodule; E86.0 Dehydration; F31.9 Bipolar disorder, unspecified; F41.9 Anxiety disorder, unspecified; I10 Essential (primary) hypertension; Z59.0 Homelessness; G40.909 Epilepsy, unspecified, not intractable, without status epilepticus; F10.10 Alcohol abuse, uncomplicated; Z83.3 Family history of diabetes mellitus; Z82.49 Family history of ischemic heart disease and other diseases of the circulatory system; Z79.899 Other long term (current) drug therapy; Z80.9 Family history of malignant neoplasm, unspecified; F19.21 Other psychoactive substance dependence, in remission; F12.10 Cannabis abuse, uncomplicated; M19.011 Primary osteoarthritis, right shoulder; M75.41 Impingement syndrome of right shoulder; E04.2 Nontoxic multinodular goiter; Z72.0 Tobacco use; M67.813 Other specified disorders of tendon, right shoulder; Z98.890 Other specified postprocedural states
CPT/HCPCS: 36415; 70450-TC; 71045-TC; 72125-TC; 72141-TC; 73030-TC; 73221-TC; 76536-TC; 80048-TC; 80061-TC; 80076-TC; 82962-TC; 83735-TC; 84100-TC; 84439-TC; 84443-TC; 84484-TC; 85025-TC; 85730-TC; 87081-TC; 97116-TC; 97530-TC; G0378; J7030

== ENCOUNTER 2019-02-27 17:43 | Emergency (ER) | payer MEDICAID ==
[~2019-02-27] VITALS: Ht 180.3 cm; Wt 93.0 kg
[~2019-02-27 17:43] MED LIST: GABA300C PO; Hydrocodone/Apap 10/325MG PO; QUET400T PO
[2019-02-27 18:27] VITALS: BP 162/89
== END 2019-02-27 20:42 | disposition home or self-care (01) ==
LOC: ER 17:46
DX: M79.10 Myalgia, unspecified site (principal); R53.1 Weakness; M48.00 Spinal stenosis, site unspecified; I10 Essential (primary) hypertension; F41.9 Anxiety disorder, unspecified; F31.9 Bipolar disorder, unspecified; F17.200 Nicotine dependence, unspecified, uncomplicated; Z59.0 Homelessness; Z79.899 Other long term (current) drug therapy

== ENCOUNTER 2019-06-29 21:59 | Emergency (ER) | payer MEDICAID ==
[~2019-06-29] VITALS: Ht 180.3 cm; Wt 93.0 kg
--- NOTE | 2019-06-29 23:02 | NUR ---
CALLED PT TO BE TRIAGED, NOT IN WAITING ROOM
--- NOTE | 2019-06-29 23:23 | NUR ---
PT UNABLE TO PROVIDE URINE SAMPLE AT THIS TIME
--- NOTE | 2019-06-29 23:25 | NUR ---
PT BIBFRIEND C/O DEPRESSION. PT +SI/ -HI. PLACED IN GOWN. [facility] IN [place].
[2019-06-29] MEDS ORDERED: OLANZAPINE 5 MG TABLET ONE (23:36)
[2019-06-29 23:43] LABS: BASOPHILS # (AUTO) 0.1 /CMM (0.0-0.2); BASOPHILS % (AUTO) 0.8 % (0.0-2.0); EOSINOPHILS % (AUTO) 12.7 % (0.0-6.0); HEMATOCRIT 44 % (39-51); HEMOGLOBIN 14.6 g/dL (13.5-17.5); LYMPHOCYTES # (AUTO) 2.3 /CMM (0.8-4.8); LYMPHOCYTES % (AUTO) 21.8 % (20.0-44.0); MEAN CORPUSCULAR HGB CONC 33 g/dl (31.0-36.0); MEAN CORPUSCULAR VOLUME 103 fL (80-96); MONOCYTES # (AUTO) 0.6 /CMM (0.1-1.30); MONOCYTES % (AUTO) 6.2 % (2.0-12.0); NEUTROPHILS # (AUTO) 6.1 /CMM (1.8-8.9); NEUTROPHILS % (AUTO) 58.5 % (43.0-81.0); PLATELET COUNT (AUTO) 316 /CMM (150-450); RED BLOOD CELL COUNT(AUTO) 4.31 MIL/uL (4.5-6.0); WHITE BLOOD COUNT (AUTO) 10.4 K/uL (4.3-11.0)
[2019-06-29 23:55] LABS: CALCIUM, SERUM 9.1 mg/dL (8.5-10.1); POTASSIUM 4.2 mmol/L (3.5-5.1)
[2019-06-29 23:59] LABS: ALBUMIN 3.8 g/dL (3.4-5.0); BILIRUBIN,DIRECT 0.1 mg/dL (0.0-0.2); BILIRUBIN,TOTAL 0.2 mg/dL (0.2-1.0); TOTAL PROTEIN, SERUM 7.6 g/dL (6.4-8.2)
[2019-06-30] MEDS ORDERED: OLANZAPINE 5 MG TABLET PO ONE
[2019-06-30 00:06] LABS: SALICYLATE 1.9 mg/dL (2.8-20.0)
[2019-06-30 04:19] LABS: APPEARANCE,URINE Clear (CLEAR); BILIRUBIN,URINE Negative (NEGATIVE); BLOOD, URINE Negative Ery/uL (NEGATIVE); COLOR,URINE Yellow (YELLOW); KETONES,URINE Negative (NEGATIVE); LEUKOCYTE ESTERASE ,URINE Negative (NEGATIVE); NITRITE, URINE Negative (NEGATIVE); PROTEIN,URINE Negative (NEGATIVE); UGLUCOSE Negative (NEGATIVE); UROBILINOGEN,URINE 0.2 EU/dL (0.2)
--- NOTE | 2019-06-30 08:15 | NUR ---
Social service consult requested by MD for suicidal ideations. Per MD notes, pt is a 59-year-old male who was brought in by friends for depression. Apparently he is suicidal. Recently discharged from detox and has gone on drinking binge over the past 2 weeks. SPRAYER INSECTICIDE met with the pt beside. SPRAYER INSECTICIDE introduced self and explained her role. SPRAYER INSECTICIDE is familiar with the pt from previous ED/inpatient visits. Pt is alert and oriented x 4. Pt's mood is congruent. Pt appears disheveled. [facility] [place] [facility] [place], however when SPRAYER INSECTICIDE asked pt if he is suicidal, pt declined, stating, " I don't want to kill myself, " and starts laughing. Pt then stated, " I just need some shoes, so I can leave." Pt declined correction placement. SPRAYER INSECTICIDE informed pt about [place] correction program. Pt responded, stating, " I am very familiar with it." Pt was provided with a homeless packet consists of homeless shelters, food sibley, hot showers, medical and mental health clinics and substance abuse referrals. P Pt was provided with shoes, breakfast and TAP card. Homeless Patient waiver form was signed by the pt and placed in pt's chart. No other social service needs are requested at this time.
--- NOTE | 2019-06-30 09:13 | NUR ---
patient denies SI/HI. made aware.
[2019-06-30 09:14] VITALS: BP 129/81
--- NOTE | 2019-06-30 09:14 | NUR ---
SO [facility]GAN [facility] CALLED TO SAY THAT PT HAS BEEN ACCEPTED. NOTIFIED THEM THAT PT IS REFUSING TO GO.
--- NOTE | 2019-06-30 09:17 | NUR ---
Patient given written and verbal discharge instructions. Patient verbalizes understanding of instructions. Patient is ambulatory with steady gait. Refuses offer of senior living placement. Patient given list of available shelters in surrounding area. social service spoke to patient.
== END 2019-06-30 09:17 | disposition home or self-care (01) ==
LOC: ER 22:03
DX: F10.10 Alcohol abuse, uncomplicated (principal); R56.9 Unspecified convulsions; I10 Essential (primary) hypertension; F41.9 Anxiety disorder, unspecified; F31.9 Bipolar disorder, unspecified; F17.200 Nicotine dependence, unspecified, uncomplicated; F12.10 Cannabis abuse, uncomplicated; F15.10 Other stimulant abuse, uncomplicated; Y90.6 Blood alcohol level of 120-199 mg/100 ml; Z59.0 Homelessness; Z79.899 Other long term (current) drug therapy
CPT/HCPCS: 36415 ×2; 80048; 80076; 80305; 80307 ×2; 80329; 81001; 85025; 99283; G0480; 81000-TC

== ENCOUNTER 2019-09-17 16:21 | Emergency (ER) | payer MEDICAID ==
[~2019-09-17] VITALS: Ht 180.3 cm; Wt 93.0 kg
--- NOTE | 2019-09-17 17:25 | NUR ---
CALLED - NO ANSWER
[2019-09-17 17:26] VITALS: BP 122/93
== END 2019-09-17 17:27 | disposition home or self-care (01) ==
LOC: ER 16:25
DX: M79.601 Pain in right arm (principal); G89.29 Other chronic pain; Z53.21 Procedure and treatment not carried out due to patient leaving prior to being seen by health care provider